=== PATIENT | male | born 1940 | race Caucasian/White ===

== ENCOUNTER 2019-03-15 12:06 | Inpatient (IN) ==
[2019-03-15] MEDS ORDERED: ONDANSETRON 4 MG/2 ML VIAL IV PRN (14:11)
[2019-03-15] MEDS ORDERED: GLUCAGON 1 MG VIAL IM PRN (14:11)
[2019-03-15] MEDS ORDERED: IBUPROFEN 600 MG TABLET PO PRN (14:11)
[2019-03-15] MEDS ORDERED: DEXTROSE 50% 25 GM/50 ML VIAL IV PRN ×2 (14:11→17:12)
[2019-03-15] MEDS ORDERED: ACETAMINOPHEN 325 MG TABLET PO PRN (14:11)
[2019-03-15] MEDS ORDERED: MAGNESIUM HYDROXIDE SUSP 30 ML UDCUP PO PRN (14:11)
[2019-03-15] MEDS: ENOXAPARIN 40 MG/0.4 ML SYRINGE SUBCUT SCH (15:01)
[2019-03-15] MEDS: SODIUM CHLORIDE 0.9% 1,000 ML IV SCH (15:20)
[2019-03-15 15:56] LABS: Basophils % 0.7 % (0.0-0.8); Eosinophils % 0.7 % (0.00-10.9); Hematocrit 37.1 VOL% (42.0-52.0); Immature Granulocytes % 0.3 %; Immature Granulocytes Absolute 0.02 #; Lymphocytes # 1.2 10*3/uL (1.4-4.0); Lymphocytes % 19.9 % (21.2-54.2); Mean Corpuscular HGB Conc 32.3 GM/DL (32-36); Mean Corpuscular Volume 92.3 FL (87-102); Mean Platelet Volume 9.8 FL (9.6-12.0); Monocytes % 9.5 % (1.7-12.7); Neutrophils % 68.9 % (38.7-73.9); Platelet Count 237 T/CUMM (130-400); Red Blood Count 4.02 MC/CUMM (3.8-5.5); Red Cell Distribution Width 13.4 % (9.3-17.3); White Blood Count 5.9 T/CUMM (4-12)
[2019-03-15] MEDS: INSULIN REGULAR 100 UNIT/ML SUBCUT SCH (16:02)
[2019-03-15 16:22] LABS: Alanine Aminotransferase 22 U/L (16-61); Albumin 3.5 G/DL (3.4-5.0); Alkaline Phosphatase 68 U/L (45-117); Aspartate Amino Transferase 15 U/L (0-37); Bilirubin,Total < 0.39 MG/DL (0.2-1.0); Blood Urea Nitrogen 24 MG/DL (7-18); Glucose 116 MG/DL (74-106); Osmolality,Calculated 272.2 MOS/KG (273-304); Total Protein 6.8 G/DL (6.4-8.3)
[2019-03-15] MEDS ORDERED: ASPIRIN CHEW 81 MG TABLET PO ONE (17:12)
[2019-03-15] MEDS ORDERED: ENOXAPARIN 40 MG/0.4 ML SYRINGE SUBCUT ONE (17:58)
[2019-03-15 18:52] LABS: Apearance,Urine CLEAR (Clear); Bilirubin,Urine Negative (Negative); Blood, Urine Negative (Negative); Glucose,Urine (UA) Negative (Negative); Ketones,Urine Negative (Negative); Mucus,Urine Occasional /LPF (Occasional); Nitrite,Urine Negative (Negative); Protein,Urine Negative; RBC,Urine 1 /HPF (0-4); Squamous Epithelial Cell,Urine Occasional /HPF (0-10); Urine Color Yellow (Yellow); Urine Specific Gravity 1.015 (1.001-1.035); Urine Urobilinogen < 2.0 EU/DL (0.2-1.0); WBC,Urine <1 /HPF (0-6)
[2019-03-15] MEDS ORDERED: ENALAPRIL 20 MG TABLET PO SCH (21:00)
[2019-03-15] MEDS: DOCUSATE SODIUM 100 MG CAPSULE PO SCH (21:52)
[2019-03-15] MEDS: SIMVASTATIN 10 MG TABLET PO SCH (21:52)
[2019-03-15] MEDS: TAMSULOSIN 0.4 MG CAPSULE PO SCH (21:52)
[2019-03-15] MEDS: diphenhydrAMINE CAP 25 MG CAPSULE PO SCH (21:52)
[2019-03-15] MEDS: LATANOPROST 0.005% OPH SOLN 2.5 ML BOTTLE BOTH EYES SCH (22:40)
[2019-03-16] MEDS: SODIUM CHLORIDE 0.9% 1,000 ML IV SCH (01:20)
[2019-03-16] MEDS: ENALAPRIL 10 MG TABLET PO SCH ×3 (03:08→21:36)
[2019-03-16 04:56] LABS: Calcium 8.4 MG/DL (8.5-10.1); Osmolality,Calculated 280.4 MOS/KG (273-304)
[2019-03-16] MEDS ORDERED: ENOXAPARIN 80 MG/0.8 ML SYRINGE SUBCUT ONE (07:00)
[2019-03-16] MEDS ORDERED: POTASSIUM CHLORIDE RIDER 10 MEQ in PREMIX 1 EACH IV PRN (07:44)
[2019-03-16] MEDS ORDERED: MAGNESIUM SULF RIDER 2 GM in PREMIX 1 EACH IV PRN (07:44)
[2019-03-16 07:47] LABS: Troponin I 0.015 NG/ML (0.00-0.045)
[2019-03-16 08:04] LABS: Basophils # 0.1 10*3/uL (0.0-0.2); Eosinophils # 0.1 10*3/uL (0.0-0.87); Eosinophils % 1.7 % (0.00-10.9); Hematocrit 38.2 VOL% (42.0-52.0); Hemoglobin 12.7 GM/DL (14.0-18.0); Immature Granulocytes % 0.4 %; Immature Granulocytes Absolute 0.02 #; Lymphocytes % 38.2 % (21.2-54.2); Mean Corpuscular HGB Conc 33.2 GM/DL (32-36); Mean Corpuscular Volume 91.6 FL (87-102); Neutrophils % 47.7 % (38.7-73.9); Platelet Count 224 T/CUMM (130-400); Red Blood Count 4.17 MC/CUMM (3.8-5.5); Red Cell Distribution Width 13.5 % (9.3-17.3); White Blood Count 5.2 T/CUMM (4-12)
[2019-03-16 08:11] LABS: PT Patient Result 10.4 SECS
[2019-03-16] MEDS: MULTIVITAMIN (CENTRUM) TABLET PO SCH (08:52)
[2019-03-16] MEDS: ASPIRIN CHEW 81 MG TABLET PO SCH (08:52)
[2019-03-16] MEDS: PANTOPRAZOLE 40 MG TABLET PO SCH (08:52)
[2019-03-16] MEDS: INSULIN REGULAR 100 UNIT/ML SUBCUT SCH ×2 (08:54→17:03)
[2019-03-16] MEDS: DOCUSATE SODIUM 100 MG CAPSULE PO SCH ×2 (08:54→21:36)
[2019-03-16] MEDS ORDERED: diphenhydrAMINE CAP 25 MG CAPSULE PO ONE (12:00)
[2019-03-16] MEDS ORDERED: DIAZEPAM 5 MG TABLET PO ONE (12:00)
[2019-03-16] MEDS ORDERED: LIDOCAINE 1% 20 ML VIAL ONE (14:05)
[2019-03-16] MEDS ORDERED: MIDAZOLAM 2 MG/2 ML VIAL ONE (14:05)
[2019-03-16] MEDS ORDERED: fentaNYL 100 MCG/2 ML VIAL ONE (14:05)
[2019-03-16] MEDS ORDERED: DEXTROSE 50% 25 GM/50 ML VIAL IV PRN (15:45)
[2019-03-16] MEDS: ENOXAPARIN 40 MG/0.4 ML SYRINGE SUBCUT SCH (16:47)
[2019-03-16] MEDS: diphenhydrAMINE CAP 25 MG CAPSULE PO SCH (21:36)
[2019-03-16] MEDS: TAMSULOSIN 0.4 MG CAPSULE PO SCH (21:36)
[2019-03-16] MEDS: SIMVASTATIN 10 MG TABLET PO SCH (21:37)
[2019-03-17] MEDS: LATANOPROST 0.005% OPH SOLN 2.5 ML BOTTLE BOTH EYES SCH (02:44)
[2019-03-17 05:47] LABS: Basophils % 0.7 % (0.0-0.8); Eosinophils # 0.2 10*3/uL (0.0-0.87); Eosinophils % 4.2 % (0.00-10.9); Hematocrit 37.2 VOL% (42.0-52.0); Hemoglobin 12.1 GM/DL (14.0-18.0); Immature Granulocytes % 0.4 %; Immature Granulocytes Absolute 0.02 #; Lymphocytes # 1.6 10*3/uL (1.4-4.0); Lymphocytes % 28.4 % (21.2-54.2); Mean Corpuscular HGB Conc 32.5 GM/DL (32-36); Mean Corpuscular Volume 92.1 FL (87-102); Mean Platelet Volume 10.1 FL (9.6-12.0); Monocytes % 12.5 % (1.7-12.7); Neutrophils % 53.8 % (38.7-73.9); Platelet Count 217 T/CUMM (130-400); Red Blood Count 4.04 MC/CUMM (3.8-5.5); Red Cell Distribution Width 13.5 % (9.3-17.3); White Blood Count 5.7 T/CUMM (4-12)
[2019-03-17 06:30] LABS: Calcium 8.8 MG/DL (8.5-10.1); Osmolality,Calculated 276.5 MOS/KG (273-304)
[2019-03-17 06:32] LABS: Calcium 8.6 MG/DL (8.5-10.1); Osmolality,Calculated 272.8 MOS/KG (273-304)
[2019-03-17] MEDS: INSULIN REGULAR 100 UNIT/ML SUBCUT SCH ×2 (08:18→15:44)
[2019-03-17] MEDS: ASPIRIN CHEW 81 MG TABLET PO SCH (09:27)
[2019-03-17] MEDS: MULTIVITAMIN (CENTRUM) TABLET PO SCH (09:27)
[2019-03-17] MEDS: PANTOPRAZOLE 40 MG TABLET PO SCH (09:28)
[2019-03-17] MEDS: DOCUSATE SODIUM 100 MG CAPSULE PO SCH (09:28)
[2019-03-17] MEDS: SODIUM CHLORIDE 0.9% 1,000 ML IV SCH (10:09)
[2019-03-17] MEDS: ENALAPRIL 10 MG TABLET PO SCH (10:09)
[2019-03-17] MEDS: ENOXAPARIN 40 MG/0.4 ML SYRINGE SUBCUT SCH (14:55)
[2019-03-17 15:47] VITALS: BP 129/71
[2019-03-17] MEDS ORDERED: ENALAPRIL 10 MG TABLET PO SCH ×2 (20:00→21:00)
[2019-03-18] MEDS ORDERED: ASPIRIN EC 81 MG TABLET PO SCH (09:00)
== END 2019-03-17 17:10 | disposition home or self-care (01) | DRG 287 ==
LOC: N.TELES 14:30
PROVIDERS: ADMIT Internal Medicine; ATTEND Internal Medicine